=== PATIENT | male | born 1940 | race Asian ===

== ENCOUNTER → 2023-06-04 | Outpatient (CLI) | payer OTHER | END | disposition home or self-care (01) | LOC: RADMN 13:55 | PROVIDERS: ATTEND Chiropractor | DX: I08.8 Other rheumatic multiple valve diseases (principal); I70.209 Unspecified atherosclerosis of native arteries of extremities, unspecified extremity | CPT/HCPCS: 93306 ==

== ENCOUNTER → 2024-08-19 | Outpatient (CLI) | payer OTHER ==
[2024-08-19 10:21] LABS: BASOPHILS % (AUTO) 0.9 % (0.0-2.0); EOSINOPHILS % (AUTO) 0.1 % (1.0-6.0); HEMATOCRIT 36.5 % (41-53); HEMOGLOBIN 11.6 g/dL (13.5-17.5); LYMPHOCYTES # (AUTO) 0.3 K/uL (1.0-4.8); MEAN CORPUSCULAR HEMOGLOBIN 30.8 pg (26.0-34.0); MEAN CORPUSCULAR HGB CONC 31.7 G/dL (31.0-37.0); MEAN CORPUSCULAR VOLUME 97 fL (80-100); MONOCYTES # (AUTO) 0.6 K/uL (0.1-1.0); MONOCYTES % (AUTO) 19.2 % (2.0-9.0); NEUTROPHILS # (AUTO) 2.1 K/uL (1.8-7.7); NEUTROPHILS % (AUTO) 69.8 % (40.0-70.0); PLATELET COUNT (AUTO) 191 K/uL (150-450); RED BLOOD CELL COUNT(AUTO) 3.76 MIL/uL (4.50-5.90); WHITE BLOOD COUNT (AUTO) 3.1 K/uL (4.5-11.0)
== END | disposition home or self-care (01) ==
LOC: LABMN 09:51
PROVIDERS: ATTEND Chiropractor
DX: C91.41 Hairy cell leukemia, in remission (principal)
CPT/HCPCS: 85025